=== PATIENT | female | born 1960 | race Caucasian/White ===

== ENCOUNTER 2019-11-05 13:21 | Emergency (ER) | payer OTHER ==
--- NOTE | 2019-11-05 14:29 | EDM.PDOC ---
<Zuri Duenas M - Last Filed: 11/05/19 14:55> ED HPI GENERAL MEDICAL PROBLEM - General Chief Complaint: Lower Extremity Injury/Pain Stated Complaint: POSSIBLE BLOOD CLOT Time Seen by Provider: 11/05/19 14:24 Source of Information: Reports: Patient, RN, Significant Other History Limitations: Reports: No Limitations - History of Present Illness INITIAL COMMENTS - FREE TEXT/NARRATIVE: 59 year old female presents to ER private vehicle with spouse. C/O pain to LLE posterior calf. Indicates traveled many days from [place] to [place] by car with not too many stops and is concerned the pain and palpable lump is a blood clot. Denies SOB or acute symptomatology. Denies redness or warmth to LLE. Does not give a pain value for "lump" on L posterior caldf. Pt states is very active with [employer] 16+ hours a week and claims to be in good health. Denies history of blood clots or coagulopathies. Onset: Gradual Onset Date: 11/02/19 Duration: Day(s):, Getting Worse Location: Reports: Lower Extremity, Left Quality: Reports: Ache Severity: Moderate Improves with: Reports: Immobilization, Rest Worsens with: Reports: Movement Associated Symptoms: Reports: No Other Symptoms Left Leg Pain Score (Numeric/FACES): 2 - Related Data Allergies Allergy/AdvReac Type Severity Reaction Status Date / Time No Known Allergies Allergy Verified 11/05/19 14:09 Home Meds: Home Meds Simvastatin 20 mg PO BEDTIME 11/05/19 [History] Past Medical History HEENT History: Reports: Hard of Hearing Cardiovascular History: Reports: High Cholesterol Genitourinary History: Reports: Renal Calculus Oncologic (Cancer) History: Reports: Breast - Past Surgical History Oncologic Surgical History: Reports: Lumpectomy Social & Family History - Tobacco Use Smoking Status *Q: Never Smoker - Caffeine Use Caffeine Use: Reports: Soda, Tea - Recreational Drug Use Recreational Drug Use: No - Living Situation & Occupation Living situation: Reports: with Significant Other Occupation: Retired (Single dwelling home) Review of Systems - Review of Systems Review Of Systems: See Below Constitutional: Reports: No Symptoms Eyes: Reports: No Symptoms Ears: Reports: No Symptoms Nose: Reports: No Symptoms Mouth/Throat: Reports: No Symptoms Respiratory: Reports: No Symptoms Cardiovascular: Reports: No Symptoms GI/Abdominal: Reports: No Symptoms Genitourinary: Reports: No Symptoms Musculoskeletal: Reports: Leg Pain (LLE posterior calf) Skin: Reports: No Symptoms Neurological: Reports: No Symptoms Psychiatric: Reports: No Symptoms ED EXAM, GENERAL - Physical Exam Exam: See Below Exam Limited By: No Limitations General Appearance: Alert, WD/WN, No Apparent Distress Eye Exam: Bilateral Eye: Normal Inspection, PERRL Ears: Normal External Exam, Hearing Grossly Normal Ear Exam: Bilateral Ear: Auricle Normal, TM normal Nose: Normal Inspection, Normal Mucosa, No Blood Throat/Mouth: Normal Inspection, Normal Lips, Normal Teeth, Normal Gums, Normal Voice, No Airway Compromise Head: Normocephalic Neck: Normal Inspection, Supple, Non-Tender, Full Range of Motion Respiratory/Chest: No Respiratory Distress, Lungs Clear, Normal Breath Sounds, No Accessory Muscle Use, Chest Non-Tender Cardiovascular: Normal Peripheral Pulses, Regular Rate, Rhythm, No Edema, No Gallop, No JVD, No Murmur, No Rub Peripheral Pulses: 2+: Radial (L), Radial (R), Popliteal (L), Popliteal (R), Dorsalis Pedis (L), Dorsalis Pedis (R) GI/Abdominal: Normal Bowel Sounds, Soft, Non-Tender, No Distention (Female) Exam: Deferred Rectal (Female) Exam: Deferred Back Exam: Normal Inspection, Full Range of Motion Extremities: Normal Inspection, Normal Range of Motion, No Pedal Edema, Normal Capillary Refill, Leg Pain (LLE posterior calf ) Neurological: Alert, Oriented, CN II-XII Intact, Normal Cognition, Normal Gait, Normal Reflexes, No Motor/Sensory Deficits Psychiatric: Normal Affect, Normal Mood Skin Exam: Warm, Dry, Intact, Normal Color, No Rash (BLLE equally warmand pulses BLLE +2) Lymphatic: No Adenopathy Course - Re-Assessments/Exams Free Text/Narrative Re-Assessment/Exam: 11/05/19 14:32 Exam complete. Will order LLE US to R/o blood clot 11/05/19 14:55 US negative for deep or superficial DVT Ok to D/c home Departure - Departure Time of Disposition: 14:55 Disposition: Home, Self-Care 01 Condition: Good Clinical Impression: Muscle cramp - Discharge Information *PRESCRIPTION DRUG MONITORING PROGRAM REVIEWED*: Not Applicable *COPY OF PRESCRIPTION DRUG MONITORING REPORT IN PATIENT JAILYN: Not Applicable Instructions: Muscle Cramps and Spasms, [id number] Referrals: PCP,None [Primary Care Provider] - Forms: ED Department Discharge Care Plan Goals: Discussed with patient to take time to warm up prior to exercise or activity. Will follow up with provider if sudden pain or chest pain develops. May take Ibuprofen as needed for cramps in left leg. Sepsis Event Note (ED) - Evaluation Sepsis Screening Result: No Definite Risk - Problem List & Annotations (1) Muscle cramp SNOMED Code(s): 53494451 Code(s): R25.2 - CRAMP AND SPASM Status: Acute Current Visit: Yes Onset Date: ~10/26/19 - Problem List Review Problem List Initiated/Reviewed/Updated: Yes - Assessment/Plan Assessment:: Discussed with patient to take time to warm up prior to exercise or activity. Will follow up with provider if sudden pain or chest pain develops. May take Ibuprofen as needed for cramps in left leg. <OfficerhTomas - Last Filed: 11/05/19 15:01> ED EXAM, GENERAL - Physical Exam Free Text/Narrative:: agree with exam below Course - Vital Signs Last Recorded V/S: Last Vital Signs Temp 97.7 F 11/05/19 14:07 Pulse 57 L 11/05/19 14:07 Resp 13 11/05/19 14:07 BP 128/71 11/05/19 14:07 Pulse Ox 98 11/05/19 14:07 - Orders/Labs/Meds Orders: Active Orders 24 hr Category Date Time Status VL Duplex Lwr Ext Veins Ltd Lt [US] Stat Exams 11/05/19 14:22 Ordered Departure - Departure Time of Disposition: 15:01 Sepsis Event Note (ED) - Focused Exam Vital Signs: Vital Signs Temp Pulse Resp BP Pulse Ox 11/05/19 14:07 97.7 F 57 L 13 128/71 98 11/05/19 14:00 97.7 F 57 L 13 128/71 98 - Assessment/Plan Plan: Assessment Acuity = acute site and laterality = left leg pain Etiology = probable muscle skeletal nature Manifestations = none Location of injury = Home Lab values = ultrasound negative for any superficial or deep thrombotic event official read radiologist pending Plan Mainly reassurance Tylenol Motrin as needed follow-up primary care as needed This note was dictated using [email or web address] voice recognition software please call with any questions on syntax or grammar.
--- NOTE | 2019-11-06 09:53 | US ---
VL Duplex Lwr Ext Veins Ltd Lt INDICATION: R/o blood clot FINDINGS: Ultrasound examination of the lower extremity using Doppler and compressive technique demonstrates that the common femoral, femoral, and popliteal veins are patent, and compressible throughout. The calf veins were segmentally visualized and are negative where seen. IMPRESSION: Negative for deep venous thrombosis.
== END 2019-11-05 15:09 | disposition home or self-care (01) ==
LOC: JP.ED 13:21
DX: R25.2 Cramp and spasm (principal); E78.00 Pure hypercholesterolemia, unspecified; Z79.899 Other long term (current) drug therapy
CPT/HCPCS: 93971-26-LT; 93971-LT; 99282; 99283-25